=== PATIENT | female | born 1960 | race Caucasian/White ===

== ENCOUNTER 2016-09-11 10:24 | Outpatient (CLI) | payer OTHER ==
--- NOTE | 2016-09-11 13:09 | Ultrasound Report ---
THYROID ULTRASOUND: 09/11/2016 CLINICAL INDICATION: Thyroid nodule. COMPARISON: None. TECHNIQUE: Real-time scanning was performed with sales representative printing static images obtained. FINDINGS: The right lobe measures 4.0 x 2.0 x 1.4 cm, and the left lobe measures 4.1 x 1.6 x 1.3 cm. The isthmus measures 3 mm. Multiple small cysts are present. There is a spongiform 1.5 x 1.3 x 0. 8 cm nodule in the medial left lobe, without microcalcifications or other suspicious findings. No ce rvical adenopathy is appreciated. IMPRESSION: MULTINODULAR THYROID, WITH NO DOMINANT SUSPICIOUS NODULE IDENTIFIED. NO FINE NEEDLE ASP IRATION IS RECOMMENDED BASED ON LARS CRITERIA. JOB #: [id number] EXT JOB #:[id number]
== END 2016-09-11 10:25 | disposition home or self-care (01) ==
LOC: DI 10:24
PROVIDERS: ATTEND Physician Assistant Medical
DX: E04.2 Nontoxic multinodular goiter (principal)
CPT/HCPCS: 76536